=== PATIENT | female | born 1980 | race Caucasian/White ===

== ENCOUNTER → 2018-11-28 11:01 | Day surgery (SDC) | payer BC ==
--- NOTE | 2018-10-26 07:25 | HP ---
CC: Dr. Kenya Mckinley * PREOPERATIVE HISTORY AND PHYSICAL: DATE OF ADMISSION/SURGERY: 11/14/18 This patient is scheduled for same-day surgery admission by Dr. Avila on 11/14. DATE OF PREOPERATIVE HISTORY AND PHYSICAL EXAMINATION: 10/25/18 ATTENDING SURGEON: Dr. Justin Avila * (dictated by Kenya Marion NP). CHIEF COMPLAINT: Hiatal hernia. HISTORY OF PRESENT ILLNESS: The patient is a 38-year-old female who presented to Dr. Avila for evaluation of GERD with hiatal hernia. She was diagnosed with a small hiatal hernia on upper endoscopy 4 to 5 years ago. This was done for symptoms of reflux. She stopped smoking and lost weight; she does not drink alcohol, but drinks coffee and uses tomato products. At times, she has upper abdominal pain. She has been managed with a PPI; however, continues to have breakthrough symptoms and is also taking an H2 angie as needed. She has expressed concerns about long-term effects of the medications. She continues to have daily reflux; her upper GI x-ray was notable for a small sliding type hiatal hernia. She will have a preoperative upper endoscopy by Dr. Stacy Rahman on 10/26/18. She has discussed surgical repair with Dr. Avila and he has recommended laparoscopic hiatal hernia repair with fundoplication and has discussed the nature of the surgical procedure, the expected results of the surgery, the relevant risks, benefits, and alternatives and today, I reviewed the expected postoperative care and recovery including dietary guidelines. The patient has had a chance to ask questions and stated that she understands the information and is satisfied with the answers given to her questions. She will sign surgical consent on the day of surgery. PAST MEDICAL HISTORY: Gastroesophageal reflux disease; anxiety; depression; substance abuse, in remission for 10 years. PAST SURGICAL HISTORY: Tonsillectomy in 2010 and wisdom teeth extraction in 1999. OBSTETRICAL HISTORY: 0. She is up-to-date with pelvic and Pap smear. Last menstrual period started on 10/04/18 and her next period is due on . MEDICATIONS: 1. Escitalopram 5 mg 1-1/2 tablets p.o. daily at bedtime. 2. Omeprazole 40 mg p.o. daily in the morning. 3. Valacyclovir 500 mg p.o. p.r.n. 4. Calcium 1 tablet daily. 5. Ranitidine 150 mg p.o. b.i.d. p.r.n. 6. Lysine 1000 mg daily. 7. Fluticasone 2 sprays each nostril daily p.r.n. 8. Dicyclomine 10 mg p.r.n. 9. Vitamin D3 at 4000 units p.o. daily. ALLERGIES: No known drug allergies. FAMILY HISTORY: Father with type 2 diabetes. No known anesthesia complications , bleeding tendencies, or clotting disorders in the family. SOCIAL HISTORY: She is single and is employed as a human services case manager. She quit smoking in 2009 after smoking 1 pack of cigarettes per day; she is in recovery for the past 10 years from substance abuse. REVIEW OF SYSTEMS: Constitutional: No fevers, chills, excessive fatigue, or unintended weight loss. Endocrine: No diabetes or thyroid disease. Hematologic: No easy bruising or bleeding. No history of blood transfusions. Respiratory: No dyspnea on exertion. No chronic cough. Cardiovascular: No anginal chest pain or palpitations. Gastrointestinal: No nausea, vomiting, diarrhea, GI bleeding, or constipation. No change in bowel habits; GERD as described in history of present illness. Genitourinary: No dysuria. Musculoskeletal: No chronic back or joint pain. Integumentary: No chronic rashes or skin changes. Neurologic: No headache or blurred vision. No areas of focal weakness or numbness. General: No previous anesthesia complications. No history of deep vein thrombosis or pulmonary embolism. PHYSICAL EXAMINATION GENERAL SURVEY: The patient is a 38-year-old overweight, well-developed female , in no acute distress. VITAL SIGNS: Height 64.75 inches, weight 182 pounds, body mass index 30.5. Blood pressure 100/70, pulse 72 and regular, respiratory rate 18, temperature 97.2 tympanic. HEENT: Benign. NECK: Supple. No cervical lymphadenopathy. No thyromegaly. BACK: No CVA tenderness. LUNGS: Breath sounds bilaterally clear and equal. HEART: Regular rate and rhythm. No murmurs or rubs appreciated. ABDOMEN: Active bowel sounds. No surgical scars. Soft and nondistended. Nontender throughout. No obvious masses, organomegaly, or evidence of ventral hernia. PELVIC: Exam is up-to-date, not repeated. RECTAL: Exam is up-to-date, not repeated. EXTREMITIES: Warm, without edema or skin ulcerations. NEUROLOGIC: Alert and oriented x3. Steady gait. SKIN: Warm, dry, intact. IMPRESSION: Hiatal hernia with gastroesophageal reflux disease. PLAN: Same-day surgery admission to Dr. Avila's service on 11/14/18 for laparoscopic hiatal hernia repair with fundoplication. MARIANO MARION, CFO CONTROLLER [id number]/[facility] #: [id number] MTDJoey
[~2018-11-28 11:01] MED LIST: Acetaminophen IV 1GM/100ML * 1,000 MG/100 ML VIAL IVPB ONE; Acetaminophen IV 1GM/100ML * 100 ML ONE; Buffered Lidocaine 1% SYRIN* 1 ML/SYRINGE INTRADERM ONE; Bupivacaine 0.5% W/EPI SDV* 30 ML VIAL ONE; Dexamethasone IV* 4 MG/ML 1 ML (4 MG) IV SLOW PU ONE; Dexamethasone IV* 4 MG/ML 1 ML (4 MG) ONE; EPHEDrine (Pressors)* 50 MG/ML VIAL ONE; Ketorolac INJ* 30 MG/ML 1 ML VIAL ONE; Lactated Ringers 1000 ML Bag* 1,000 ML IV SCH; Lidocaine 2% PF * 5 ML VIAL ONE; Midazolam* 1 MG/ML 5 ML VIAL (5 MG) ONE; Naloxone* 0.4 MG/ML 1 ML VIAL IV PRN; Ondansetron INJ* 2 MG/ML VIAL ONE; PROCHLORPERAZINE INJ 5 MG/ML 2 ML VIAL IV PRN; PROCHLORPERAZINE INJ 5 MG/ML 2 ML VIAL ONE; Propofol* 10 MG/ML 20 ML BTL ONE; Rocuronium* 10 MG/ML VIAL ONE; Scopolamine 1.5 mg* PATCH ONE; Scopolamine 1.5 mg* PATCH TRANSDERM ONE; Scopolamine PATCH Remove* 1 NOTE MISC PATCH OFF ONE; Succinylcholine* 20 MG/ML 10 ML VIAL ONE; Sugammadex * 500 MG/5 ML VIAL IV PUSH ONE; ceFAZolin 2 GM in NS PREMIX(*) 2 GM/100 ML BAG IVPB ONE; fentaNYL* 50 MCG/ML 2 ML VIAL (100 MCG VIAL) IV PRN; fentaNYL* 50 MCG/ML 2 ML VIAL (100 MCG VIAL) ONE; fentaNYL* 50 MCG/ML 5 ML VIAL (250 MCG VIAL) ONE; oxyCODONE TAB* 5 MG TAB ONE
--- NOTE | 2018-11-28 17:52 | OP ---
Operative Report - Blank - Operative Report Date of Operation: 11/28/18 Note: Brief Operative Note Preop Dx: Hiatal hernia with GERD Postop Dx: same Procedure: Laparoscopic Hiatal hernia repair w/ fundoplication Anesthesia: GET Surgeon: Margarita Hvac R Instructor: WOLF Olguin; LOAN Huff; LOAN Roman Fluids: 1200 ml RL EBL: < 20 ml Specimen: none Drains: none Findings: dictated
[2018-11-28] MEDS: oxyCODONE TAB* 5 MG TAB PO PRN ×2 (18:47→20:03)
[2018-11-28 20:49] VITALS: BP 117/72
--- NOTE | 2018-11-29 03:20 | OP ---
CC: Kenya Mckinley MD * DATE OF OPERATION: 11/28/18 - [facility] DATE OF : 82 SURGEON: Justin Avila MD. IRON PELLET TESTER: WOLF Resendez. ANESTHESIOLOGIST: Sesar Ayon MD. ANESTHESIA: General endotracheal. PRE-OP DIAGNOSES: 1. Hiatal hernia. 2. Gastroesophageal reflux disease. POST-OP DIAGNOSES: 1. Hiatal hernia. 2. Gastroesophageal reflux disease. OPERATIVE PROCEDURE: Laparoscopic repair of hiatal hernia with Sonal fundoplication. ESTIMATED BLOOD LOSS: Less than 20 mL. IV FLUIDS: 1.2 L of crystalloid SPECIMEN: None. DRAINS: None. COMPLICATIONS: None. COUNTS: Instrument, needle, and sponge counts correct. DESCRIPTION OF PROCEDURE: The patient was brought to the operating room and placed on the table supine. Sequential compression devices were placed on both lower extremities. General anesthesia was administered. She was positioned and padded appropriately. She was prepped and draped in the usual sterile fashion, received appropriate intravenous antibiotics. Local anesthetic was infiltrated into the skin and soft tissue prior to making each incision. Entry into the abdomen was through a transumbilical vertical incision using an open technique. After accessing peritoneal cavity, carbon dioxide was insufflated through a 11-mm trocar to a pressure of 15 mmHg. Under direct visualization, 5-mm trocars were placed in the right upper quadrant, left upper quadrant, and one further in the left upper quadrant laterally. A Kp liver retractor was used percutaneously in the subxiphoid position and used to elevate the left lobe of the liver. The patient was noted to have a small, sliding hiatal hernia. Mobilization of the esophagus began with opening the pars flaccida using LigaSure and scoring the phrenoesophageal ligament anteriorly. Next, the upper short gastric vessels supplying the fundus were divided with the LigaSure and the fundus was completely mobilized away from the left lynn of the diaphragm. Next, retroesophageal/retrogastric dissection was performed at the hiatus with 1/4-inch Duchesne drain used to encircle the gastroesophageal junction, secured in place with Surgitie. This was then used to manipulate the esophagus for the remainder of the case. The vagus nerve trunks were identified and they were maintained within the Duchesne drain and mobilization of the esophagus was undertaken circumferentially up into the mediastinum in order to adequately mobilize 4 to 5 cm length of the esophagus. At this point, curl stitches were placed with a 56 -Belgian bougie sed to size the closure. Two 0 Ethibond sutures were used. Next , the 360-degree fundoplication was performed. Again, sizing this over the 56- Belgian bougie and securing this with 2 sutures of 0 Ethibond to create a short loose wrap. The upper suture encompassed a portion of the esophageal wall. Bougie was removed. Hemostasis was assured. Ports removed under direct visualization. Carbon dioxide was released. Umbilicus was closed with 0 Vicryl in [id number] fashion to approximate the fascia. Skin incisions were closed with 4-0 Monocryl in simple fashion at the umbilicus and in subcuticular fashion in the remaining incisions, and then Quinn+Flex was applied to the wounds. The patient tolerated the procedure well, was extubated and transferred to Recovery in stable condition. [id number]/[facility] #: [id number] VALERIE
== END | disposition home or self-care (01) ==
LOC: OR 11:01
PROVIDERS: ATTEND Surgery
DX: K44.9 Diaphragmatic hernia without obstruction or gangrene (principal); K21.9 Gastro-esophageal reflux disease without esophagitis; F41.8 Other specified anxiety disorders; Z87.891 Personal history of nicotine dependence
CPT/HCPCS: 81025; A9270-GY; J0330; J0690; J0780; J1100; J1885; J2250; J2405; J2704; J3010